=== PATIENT | male | born 1995 | race Caucasian/White ===

== ENCOUNTER 2017-11-21 07:11 | Observation (INO) | payer MEDICAID, OTHER ==
[2017-11-21] VITALS (26 sets, daily range): BP systolic 137–206; BP diastolic 58–105; PULSE 108–164; RESP 8–22; TEMP 98.2–99.2; O2SAT 95–98
[~2017-11-21] VITALS: Ht 180.3 cm; Wt 112.4 kg
[~2017-11-21 07:11] MED LIST: ACIP20TA19 PO; ALBU0.086 INH; CETI10CH PO; GABA100C4 PO; IPRA0.02 INH; MOME1AER2 INH; MONT5CHW2 CHEW; PRED20 PO; SERT-132 PO
[2017-11-21] MEDS ORDERED: ALPRAZolam 0.5 MG TAB PO ONE (07:15)
[2017-11-21] MEDS ORDERED: methylPREDNISolone SOD SUCC 125 MG/2 ML VIAL IV PUSH ONE (07:15)
[2017-11-21] MEDS ORDERED: SODIUM CHLORIDE 0.9% FLUSH 10 ML FLUSH IVF PRN ×2 (07:15→08:45)
--- NOTE | 2017-11-21 07:16 | PD ---
HPI Chief Complaint: Respiratory Symptoms Time Seen by Provider: 07:13 Travel History International Travel<30 days: No Contact w/Intl Traveler<30days: No Traveled to known affect area: No History of Present Illness HPI 22-year-old male came to the emergency room with history of shortness of breath. Patient has been trying to take care of his asthma for past 2 months. Additional history has been given by his mother as well as in the room. She said that patient has been smoking marijuana pipe. He does have history of asthma but was controlled up until 2 months ago. He started getting wheezing, cough and shortness of breath and was started on Singulair, albuterol inhalers and was given a course of Zithromax. However his symptoms did not improve and he was also given a course of prednisone recently by his primary care. Today he was feeling exceptionally bad. He did take 2 puffs of his inhaler but when that did not bring much relief he decided come to the emergency room. Patient has been admitted to the critical care unit for his asthma when he was 9 years old. His last hospitalization was around 14 years of age. Patient does not smoke cigarettes and denies doing any drugs. When he came in his heart rate was in 160s. Blood pressure was very high and upon asking patient says that his primary care has told him that he would need to keep a diary of his blood pressure recording for 2 weeks and she would evaluate that decided to put him on antihypertensives. Today upon arrival his blood pressure was 205/105. Patient says he has been having some chest discomfort lately as well. [facility] Past Medical History Narrative Medical List of his past medical, surgical, social and family history is reviewed from the nursing note. Asthma: Yes Autoimmune Disease: No Anxiety: Yes Depression: No Cardiovascular Problems: No Diminished Hearing: No GERD: Yes Genitourinary: No Musculoskeletal: No Neurologic: No Psychiatric: No Respiratory: Yes Immunizations Current: Yes Past Surgical History Tonsillectomy: Yes Social History Alcohol Use: No Tobacco Use: No Substance Use: Yes (marijuana) Allergies-Medications (Allergen,Severity, Reaction): Coded Allergies: lactose (Unverified Allergy, Severe, 11/21/17) penicillin G (Unverified Allergy, Severe, SOB, HIVES, 11/21/17) Comments List of his allergies reviewed from the nursing note. Reported Meds & Prescriptions Reported Meds & Active Scripts Active Reported Singulair (Montelukast Sodium) 10 Mg Tab 10 Mg PO HS Proair Hfa 8.5 GM Inh (Albuterol Sulfate) 90 Mcg/Act Aer 2 Puff INH Q4-6H PRN 108 mcg/actuation Narrative Medication List of his home medications reviewed from the nursing note. Review of Systems Except as stated in HPI: all other systems reviewed are Neg Cardiovascular: Positive: Tachycardia Respiratory: Positive: Cough, Shortness of Breath, Wheezing Physical Exam Narrative GENERAL: Awake, alert, moderate distress SKIN: Focused skin assessment warm/dry. HEAD: Atraumatic. Normocephalic. EYES: Pupils equal and round. No scleral icterus. No injection or drainage. ENT: No nasal bleeding or discharge. Mucous membranes pink and moist. NECK: Trachea midline. No JVD. CARDIOVASCULAR: Regular rate and rhythm. No murmur appreciated. RESPIRATORY: Decreased air entry with end expiratory wheeze bilaterally. Subcostal muscles retractions were noticed. GASTROINTESTINAL: Abdomen soft, non-tender, nondistended. Hepatic and splenic margins not palpable. MUSCULOSKELETAL: No obvious deformities. No clubbing. No cyanosis. No edema. NEUROLOGICAL: Awake and alert. No obvious cranial nerve deficits. Motor grossly within normal limits. Normal speech. PSYCHIATRIC: Appropriate mood and affect; insight and judgment normal. Data Data Last Documented VS Orders Orders Iv Access Insert/Monitor (11/21/17 07:13) Electrocardiogram (11/21/17 07:13) Ecg Monitoring (11/21/17 07:13) Oximetry (11/21/17 07:13) Oxygen Administration (11/21/17 07:13) Chest, Single Ap (11/21/17 07:13) Sodium Chloride 0.9% Flush (Ns Flush) (11/21/17 07:15) Methylprednisolone So Succ Inj (Solumedr (11/21/17 07:15) Albuterol-Ipratropium Neb (Duoneb Neb) (11/21/17 07:15) Alprazolam (Xanax) (11/21/17 07:15) Metoprolol Tartrate Inj (Lopressor Inj) (11/21/17 08:45) Basic Metabolic Panel (Bmp) (11/21/17 08:40) Complete Blood Count With Diff (11/21/17 08:40) Albuterol Neb (Albuterol Neb) (11/21/17 08:45) Sodium Chloride 0.9% Flush (Ns Flush) (11/21/17 08:45) Arterial Blood Gas (Abg) (11/21/17 ) Influenzae A/B Antigen (11/21/17 10:13) Admit Order (Ed Use Only) (11/21/17 10:16) Place In Observation (11/21/17 ) Vital Signs (Adult) Q4H (11/21/17 10:14) Activity Oob With Assistance (11/21/17 10:14) Diet Heart Healthy (11/21/17 Lunch) Sodium Chlor 0.9% 1000 Ml Inj (Ns 1000 M (11/21/17 11:00) Sodium Chloride 0.9% Flush (Ns Flush) (11/21/17 10:15) Sodium Chloride 0.9% Flush (Ns Flush) (11/21/17 21:00) Acetaminophen (Tylenol) (11/21/17 10:15) Ondansetron Inj (Zofran Inj) (11/21/17 10:15) Basic Metabolic Panel (Bmp) (11/22/17 06:00) Complete Blood Count With Diff (11/22/17 06:00) Resp Oxygen Antonio C Titrat 1-4 L (11/21/17 ) Pt Request For Service (11/21/17 10:14) Case Management Consult (11/21/17 10:14) Enoxaparin Inj (Lovenox Inj) (11/21/17 11:00) Scd Bilateral/Knee High BRIANNA.BID (11/21/17 10:14) Nael Bilateral/Knee High BRIANNA.QSHIFT (11/21/17 10:14) Naloxone Inj (Narcan Inj) (11/21/17 10:15) Docusate Sodium-Senna (Ivon-Colace) (11/21/17 21:00) Magnesium Hydroxide Liq (Milk Of Magnesi (11/21/17 10:15) Sennosides (Senokot) (11/21/17 10:15) Bisacodyl Supp (Dulcolax Supp) (11/21/17 10:15) Albuterol-Ipratropium Neb (Duoneb Neb) (11/21/17 10:15) Albuterol-Ipratropium Neb (Duoneb Neb) (11/21/17 12:00) Labs Laboratory Tests Test 11/21/17 07:21 11/21/17 09:26 White Blood Count 15.6 TH/MM3 Red Blood Count 6.39 MIL/MM3 Hemoglobin 13.6 GM/DL Hematocrit 43.3 % Mean Corpuscular Volume 67.8 FL Mean Corpuscular Hemoglobin 21.3 PG Mean Corpuscular Hemoglobin Concent 31.5 % Red Cell Distribution Width 20.1 % Platelet Count 308 TH/MM3 Mean Platelet Volume 8.5 FL Neutrophils (%) (Auto) 88.7 % Lymphocytes (%) (Auto) 4.5 % Monocytes (%) (Auto) 5.6 % Eosinophils (%) (Auto) 0.9 % Basophils (%) (Auto) 0.3 % Neutrophils # (Auto) 13.9 TH/MM3 Lymphocytes # (Auto) 0.7 TH/MM3 Monocytes # (Auto) 0.9 TH/MM3 Eosinophils # (Auto) 0.1 TH/MM3 Basophils # (Auto) 0.0 TH/MM3 CBC Comment AUTO DIFF Differential Comment AUTO DIFF CONFIRMED Blood Urea Nitrogen 13 MG/DL Creatinine 0.93 MG/DL Random Glucose 113 MG/DL Calcium Level 8.9 MG/DL Sodium Level 137 MEQ/L Potassium Level 3.6 MEQ/L Chloride Level 103 MEQ/L Carbon Dioxide Level 26.9 MEQ/L Anion Gap 7 MEQ/L Estimat Glomerular Filtration Rate 104 ML/MIN Blood Gas Puncture Site RT RADIAL Blood Gas Patient Temperature 37.0 Blood Gas HCO3 23 mmol/L Blood Gas Base Excess -0.8 mmol/L Blood Gas Oxygen Saturation 93 % Arterial Blood pH 7.44 Arterial Blood Partial Pressure CO2 34 mmHg Arterial Blood Partial Pressure O2 68 mmHg Arterial Blood Oxygen Content 17.8 Vol % Arterial Blood Carboxyhemoglobin 1.2 % Arterial Blood Methemoglobin 0.8 % Blood Gas Hemoglobin 13.6 G/DL Oxygen Delivery Device RA Blood Gas Inspired Oxygen 21 % [facility] Medical Decision Making Medical Screen Exam Complete: Yes Emergency Medical Condition: Yes Medical Record Reviewed: Yes Interpretation(s) Twelve-lead EKG was reviewed by me. Normal sinus rhythm, normal axis, tachycardia, nonspecific ST-T wave changes. Heart rate of 151 bpm. Differential Diagnosis Acute asthma exacerbation, pneumonia, status asthmaticus Narrative Course 9:43 AM patient was given initially 3 duo nebs upon arrival. His air entry improved slightly but patient continued to remain tachycardic. His oxygen saturation dropped to 90% on room air. He was started on oxygen via nasal cannula. Upon reassessment chest tightness was appreciated again on auscultation. 3 more albuterol nebulizers were given again. Patient at this point appears to be slightly drowsy but wakes up and answers questions. He did say that his lungs feel better although once again upon auscultation he continued to have wheezes. I ordered a blood gas at this point which has been done and looks unremarkable. Chest x-rays negative for any pneumonia or fluid. Patient was also given IV Solu-Medrol. At this point I decided to admit him at least for observation since in my opinion patient would require a few more bronchodilator treatment and reassessments before he can safely be discharged home. I discussed this at length with the patient and his mother and they agree. Blood test results show leukocytosis which in my opinion could be from recent steroid use. Awaiting for the hospitalist to call back. Patient was also given IV Lopressor for his persistent tachycardia which has brought the heart rate down to the 120s. His blood pressure has come down a little bit. Critical Care Narrative Aggregate critical care time was 45 minutes. Time to perform other separately billable procedures was not included in the critical care time. My time did not include minutes spent treating any other patients simultaneously or on activities that did not directly contribute to the patient's treatment. The services I provided to this patient were to treat and/or prevent clinically significant deterioration that could result in: Respiratory distress, Status asthmaticus, multiple bronchodilator nebulizer treatment, persistent tachycardia I provided critical care services requiring my management, as noted below: Chart data review, documentation time, medication orders and management, vital sign assessments/reviewing monitor data, ordering and reviewing lab tests, ordering and interpreting/reviewing x-rays and diagnostic studies, care of the patient and discussion of the patient with the admitting physicians. Procedures EKG Prior to Arrival: No Diagnosis Primary Impression: Status asthmaticus Qualified Codes: J45.52 - Severe persistent asthma with status asthmaticus Additional Impressions: Tachycardia Hypertension Qualified Codes: I10 - Essential (primary) hypertension Respiratory distress Admitting Information Admitting Physician Requests: Observation Scripts Prednisone (Prednisone) 20 Mg Tab 20 MG PO BID for Inflammation, #20 TAB 0 Refills Take 20 mg twice day for 3 days then 20 mg daily for 3 days 10 mg daily for 3 days Prov: Annemarie Liu MD 11/23/17 Diltiazem CD 24 HR (Cardizem CD 24 HR) 120 Mg Caper 120 MG PO DAILY for tachycardia for 30 Days, #30 CAP 0 Refills Prov: Eri Guthrie 11/23/17 Ferrous Sulfate (Ferosul) 325 Mg (65 Mg Iron) Tablet 325 MG PO BID for supplementation for 30 Days, #60 TAB Prov: Eri Guthrie 11/23/17 Chely Girard MD Nov 21, 2017 07:16
[2017-11-21] MEDS: RESP: ALBUTEROL 2.5 MG/IPRATROPIUM 0.5 MG NEB (SCH) INH (07:24)
[2017-11-21] MEDS ORDERED: PRED20 PO (07:31)
[2017-11-21] MEDS ORDERED: ALBUAER3 INH (07:31)
[2017-11-21] MEDS ORDERED: MONT10TA2 PO (07:31)
--- NOTE | 2017-11-21 07:45 | RADRPT ---
EXAM DATE/TIME: 11/21/2017 07:21 [place] COMPARISON: No previous studies available for comparison. INDICATIONS : Short of breath, chest pain, cough MEDICAL HISTORY : Hypertension. Asthma SURGICAL HISTORY : None. ENCOUNTER: Initial ACUITY: 2 days PAIN SCORE: 5/10 LOCATION: Bilateral chest FINDINGS: A single view of the chest demonstrates the lungs to be symmetrically aerated without evidence of mas s, infiltrate or effusion. The cardiomediastinal contours are unremarkable. Osseous structures are intact. CONCLUSION: No acute disease. Damon Kitchen MD on November 21, 2017 at 7:42 Board Certified Radiologist. This report was verified electronically.
[2017-11-21] MEDS ORDERED: METOPROLOL TARTRATE 5 MG/5 ML VIAL IV PUSH ONE (08:45)
[2017-11-21] MEDS: RESP: ALBUTEROL 2.5 MG/3 ML NEB (SCH) INH ×2 (08:47→08:48)
[2017-11-21 08:51] LABS: AUTOMATED NEUTROPHIL # 13.9 TH/MM3 (1.8-7.7); BASOPHIL % 0.3 % (0.0-2.0); EOSINOPHIL # 0.1 TH/MM3 (0-0.4); EOSINOPHIL % 0.9 % (0.0-4.0); HEMATOCRIT 43.3 % (39.0-51.0); HEMOGLOBIN 13.6 GM/DL (13.0-17.0); LYMPH % 4.5 % (9.0-44.0); LYMPHOCYTE # 0.7 TH/MM3 (1.0-4.8); MEAN CELL VOLUME 67.8 FL (80.0-100.0); MEAN CORPUSCULAR HEMOGLOBIN 21.3 PG (27.0-34.0); MEAN CORPUSCULAR HGB CONC 31.5 % (32.0-36.0); MEAN PLATELET VOLUME 8.5 FL (7.0-11.0); MONO % 5.6 % (0.0-8.0); MONOCYTE # 0.9 TH/MM3 (0-0.9); NEUT % 88.7 % (16.0-70.0); PLATELET COUNT 308 TH/MM3 (150-450); RED BLOOD COUNT 6.39 MIL/MM3 (4.50-5.90); RED CELL DISTRIBUTION WIDTH 20.1 % (11.6-17.2); WHITE BLOOD COUNT 15.6 TH/MM3 (4.0-11.0)
[2017-11-21 09:01] LABS: CALCIUM 8.9 MG/DL (8.5-10.1)
[2017-11-21 09:02] LABS: BICARBONATE 26.9 MEQ/L (21.0-32.0)
[2017-11-21 09:06] LABS: CREATININE 0.93 MG/DL (0.60-1.30)
[2017-11-21] MEDS ORDERED: SODIUM CHLORIDE 0.9% FLUSH 10 ML FLUSH IV FLUSH PRN (10:15)
[2017-11-21] MEDS ORDERED: SENNOSIDES 8.6 MG TAB PO PRN (10:15)
[2017-11-21] MEDS ORDERED: LACTULOSE SYRUP 20 GM/30 ML CUP PO PRN (10:15)
[2017-11-21] MEDS ORDERED: BISACODYL 10 MG SUPP RECTAL PRN (10:15)
[2017-11-21] MEDS ORDERED: ONDANSETRON HCL 4 MG/2 ML VIAL IVP PRN (10:15)
[2017-11-21] MEDS ORDERED: NALOXONE HCL 0.4 MG/ML AMP IV PUSH PRN (10:15)
[2017-11-21] MEDS ORDERED: MAGNESIUM HYDROXIDE SUSP 30 ML CUP PO PRN (10:15)
[2017-11-21] MEDS ORDERED: ACETAMINOPHEN 325 MG TAB PO PRN (10:15)
[2017-11-21] MEDS ORDERED: DILTIAZEM HCL 30 MG TAB PO ONE ×2 (10:30→13:30)
[2017-11-21] MEDS: ENOXAPARIN SODIUM 40 MG/0.4 ML SYRINGE SQ SCH (11:07)
[2017-11-21] MEDS: SODIUM CHLOR 0.9% 1000 ML INJ 1,000 ML IV SCH ×2 (11:08→21:15)
[2017-11-21] MEDS: RESP: ALBUTEROL 2.5 MG/IPRATROPIUM 0.5 MG NEB (SCH) NEB ×3 (12:44→19:11)
[2017-11-21] MEDS: methylPREDNISolone SOD SUCC 40 MG/1 ML VIAL IV PUSH SCH ×3 (12:55→23:27)
--- NOTE | 2017-11-21 14:29 | HHI.HP ---
[facility] Sara Denise [facility] Admission Diagnosis Status asthmaticus, persistent tachycardia, hypertension Diagnoses: (1) Status asthmaticus Diagnosis: Principal Chief Complaint: Worsening shortness of breath Travel History International Travel<30 Days: No Contact w/Intl Traveler <30 Da: No Traveled to Known Affected Are: No Sepsis Criteria SIRS Criteria (2 or more): Heart rate over 90, WBC > 29159, < 4000 or > 10% bands History of Present Illness Written by Eri Guthrie, acting as scribe for Dr. Hadley on 11/21/17 at 14:25. Mr. Griffiths is a pleasant 22-year-old male patient with a known medical history of asthma who presented to the ED with worsening shortness of breath. He states that his asthma has been intermittently causing him dyspnea over the past 2 months with associated wheezing and cough. He states that he has been using his inhaler and home nebulizer at home with little reprieve of dyspnea with increased use. Patient has recently seen him PCP who had prescribed him a course of antibiotics and steroid taper which reportedly did not help his symptoms. Patient presented to the ED with severe dyspnea, severe hypertension and tachycardia. At the time of assessment patient is lying comfortably in bed, on supplemental O2 with oxygen saturations 98%. Cough is improved. HR although is still elevated in the 140's. Does complain of midsternal chest pain associated with breathing. Patient does state that he usually has a couple exacerbations of asthma every winter, but last hospitalization was around the ago of 14 years old. Does admit to smoking marijuana multiple times per day. Denies any tobacco use. Review of Systems Constitutional: DENIES: Fever Eyes: DENIES: Blurred vision, Diplopia Respiratory: COMPLAINS OF: Wheezing, Shortness of breath, DENIES: Cough, Sputum production Cardiovascular: DENIES: Chest pain Gastrointestinal: DENIES: Abdominal pain, Constipation, Diarrhea, Nausea, Vomiting Psychiatric: COMPLAINS OF: Anxiety Except as stated in HPI: all other systems reviewed are Neg Past Family Social History Past Medical History Asthma Hypertension Anxiety GERD Past Surgical History Tonsillectomy Reported Medications Active Reported Prednisone 20 Mg Tab 20 Mg PO DIRECTED 40 MG twice a day x 3 days, then 20 MG daily x 3 days, then 10 MG daily x 3 days Singulair (Montelukast Sodium) 10 Mg Tab 10 Mg PO HS Proair Hfa 8.5 GM Inh (Albuterol Sulfate) 90 Mcg/Act Aer 2 Puff INH Q4-6H PRN 108 mcg/actuation Allergies: Coded Allergies: lactose (Unverified Allergy, Severe, 11/21/17) penicillin G (Unverified Allergy, Severe, SOB, HIVES, 11/21/17) Active Ordered Medications Current Medications Medications (Trade) Dose Ordered Sig/Stephanie Route Start Time Stop Time Status Last Admin Sodium Chloride 1,000 ml @ 100 mls/hr Q10H IV 11/21/17 11:00 11/21/17 11:08 (NS Flush) 2 ml UNSCH PRN IV FLUSH 11/21/17 10:15 (NS Flush) 2 ml BID IV FLUSH 11/21/17 21:00 (Tylenol) 650 mg Q4H PRN PO 11/21/17 10:15 (Zofran Inj) 4 mg Q6H PRN IVP 11/21/17 10:15 (Lovenox Inj) 40 mg Q24H SQ 11/21/17 11:00 11/21/17 11:07 (Narcan Inj) 0.4 mg UNSCH PRN IV PUSH 11/21/17 10:15 (Ivon-Colace) 1 tab BID PO 11/21/17 21:00 (Milk Of Magnesia Liq) 30 ml Q12H PRN PO 11/21/17 10:15 (Senokot) 17.2 mg Q12H PRN PO 11/21/17 10:15 (Dulcolax Supp) 10 mg DAILY PRN RECTAL 11/21/17 10:15 (Duoneb Neb) 1 ampule Q2HR NEB PRN NEB 11/21/17 10:15 (Duoneb Neb) 1 ampule Q4HR WHILE AWAKE NEB NEB 11/21/17 12:00 11/21/17 12:44 (SoluMEDROL INJ) 40 mg Q6HR IV PUSH 11/21/17 12:00 11/21/17 12:55 (Cardizem) 30 mg QID PO 11/21/17 18:00 Family History Does admit to a familial history of asthma and hypertension. Social History Denies any current tobacco use. Does admit to smoking marijuana a couple times per day x 1 year intermittently. Denies any alcohol use. Physical Exam Vital Signs Vital Signs Date Time Temp Pulse Resp B/P (MAP) Pulse Ox O2 Delivery O2 Flow Rate FiO2 11/21/17 13:00 140 139/78 (98) 98 11/21/17 12:23 130 157/70 (99) 97 11/21/17 12:00 98.2 98 11/21/17 11:48 11/21/17 11:16 130 20 183/83 (116) 98 Nasal Cannula 2.00 11/21/17 09:57 149 20 175/82 (113) 96 Nasal Cannula 11/21/17 09:37 156 20 163/73 (103) 95 Nasal Cannula 11/21/17 09:17 158 20 152/86 (108) 97 Nasal Cannula 11/21/17 08:57 136 20 154/78 (103) 97 Nasal Cannula 2.00 11/21/17 08:52 128 20 98 Nasal Cannula 2.00 11/21/17 08:39 90 Nasal Cannula 2.00 11/21/17 08:37 140 20 169/82 (111) 98 Room Air 11/21/17 08:07 154 20 184/86 (118) 96 Room Air 11/21/17 07:57 164 20 174/89 (117) 97 Room Air 11/21/17 07:47 160 20 180/69 (106) 95 Room Air 11/21/17 07:35 156 20 164/85 (111) 97 Room Air 11/21/17 07:27 154 20 165/88 (113) 97 Room Air 11/21/17 07:26 163 96 Room Air 11/21/17 07:21 96 Room Air 11/21/17 07:17 156 20 189/91 (123) 96 Room Air 11/21/17 07:15 99.2 160 22 206/105 (138) 96 Physical Exam GENERAL: This is a well-nourished, well-developed patient, in no apparent distress. SKIN: No rashes, ecchymoses or lesions. Warm and dry. HEAD: Atraumatic. Normocephalic. EYES: Pupils equal round and reactive. Extraocular motions intact. No scleral icterus. No injection or drainage. ENT: Nose without bleeding, purulent drainage or septal hematoma. Throat without erythema, tonsillar hypertrophy or exudate. Uvula midline. Airway patent. NECK: Trachea midline. No JVD or lymphadenopathy. Supple, nontender, no meningeal signs. CARDIOVASCULAR: Regular rate and rhythm without murmurs, gallops, or rubs. RESPIRATORY: Inspiratory and expiratory wheezing noted throughout all lung martinez. Breath sounds equal bilaterally. No wheezes, rales, or rhonchi. GASTROINTESTINAL: Abdomen soft, non-tender, nondistended. No guarding. MUSCULOSKELETAL: Extremities without clubbing, cyanosis, or edema. No joint tenderness, effusion, or edema noted. NEUROLOGICAL: Awake and alert. Cranial nerves II through XII intact. Motor and sensory grossly within normal limits. Five out of 5 muscle strength in all muscle groups. Normal speech. Laboratory Laboratory Tests Test 11/21/17 07:21 11/21/17 09:26 White Blood Count 15.6 Red Blood Count 6.39 Hemoglobin 13.6 Hematocrit 43.3 Mean Corpuscular Volume 67.8 Mean Corpuscular Hemoglobin 21.3 Mean Corpuscular Hemoglobin Concent 31.5 Red Cell Distribution Width 20.1 Platelet Count 308 Mean Platelet Volume 8.5 Neutrophils (%) (Auto) 88.7 Lymphocytes (%) (Auto) 4.5 Monocytes (%) (Auto) 5.6 Eosinophils (%) (Auto) 0.9 Basophils (%) (Auto) 0.3 Neutrophils # (Auto) 13.9 Lymphocytes # (Auto) 0.7 Monocytes # (Auto) 0.9 Eosinophils # (Auto) 0.1 Basophils # (Auto) 0.0 CBC Comment AUTO DIFF Differential Comment AUTO DIFF CONFIRMED Blood Urea Nitrogen 13 Creatinine 0.93 Random Glucose 113 Calcium Level 8.9 Sodium Level 137 Potassium Level 3.6 Chloride Level 103 Carbon Dioxide Level 26.9 Anion Gap 7 Estimat Glomerular Filtration Rate 104 Blood Gas Puncture Site RT RADIAL Blood Gas Patient Temperature 37.0 Blood Gas HCO3 23 Blood Gas Base Excess -0.8 Blood Gas Oxygen Saturation 93 Arterial Blood pH 7.44 Arterial Blood Partial Pressure CO2 34 Arterial Blood Partial Pressure O2 68 Arterial Blood Oxygen Content 17.8 Arterial Blood Carboxyhemoglobin 1.2 Arterial Blood Methemoglobin 0.8 Blood Gas Hemoglobin 13.6 Oxygen Delivery Device RA Blood Gas Inspired Oxygen 21 Date/Time Source Procedure Growth Status 11/21/17 10:19 Nasal Washing Influenza Types A,B Antigen (VIVIANA) - Final NEGATIVE FOR FLU A AND B ANTIGEN.... Complete Result Diagram: 11/21/1772011/21/17720 Imaging Last Impressions Chest X-Ray 11/21/17712 Signed Impressions: Service Date/Time: Tuesday, November 21, 2017 07:21 - CONCLUSION: No acute disease. Damon Kitchen MD Septic Shock Reassessment Septic shock perfusion: reassessment completed Caprini VTE Risk Assessment Caprini VTE Risk Assessment: No/Low Risk (score <= 1) Caprini Risk Assessment Model Point Value = 1 Point Value = 2 Point Value = 3 Point Value = 5 Age 41-60 Minor surgery BMI > 25 kg/m2 Swollen legs Varicose veins or History of unexplained or recurrent spontaneous Oral contraceptives or hormone replacement Sepsis (< 1 month) Serious lung disease, including pneumonia (< 1 month) Abnormal pulmonary function Acute myocardial infarction Congestive heart failure (< 1 month) History of inflammatory bowel disease Medical patient at bed rest Age 61-74 Arthroscopic surgery Major open surgery (> 45 min) Laparoscopic surgery (> 45 min) Malignancy Confined to bed (> 72 hours) Immobilizing plaster cast Central venous access Age >= 75 History of VTE Family history of VTE Factor V Leiden Prothrombin [id number] Lupus anticoagulant Anticardiolipin antibodies Elevated serum homocysteine Heparin-induced thrombocytopenia Other congenital or acquired thrombophilia Stroke (< 1 month) Elective arthroplasty Hip, pelvis, or leg fracture Acute spinal cord injury (< 1 month) Prophylaxis Regimen Total Risk Factor Score Risk Level Prophylaxis Regimen 0-1 Low Early ambulation 2 Moderate Order ONE of the following: *Sequential Compression Device (SCD) *Heparin 5000 units SQ BID 3-4 Higher Order ONE of the following medications: *Heparin 5000 units SQ TID *Enoxaparin/Lovenox 40 mg SQ daily (WT < 150 kg, CrCl > 30 mL/min) *Enoxaparin/Lovenox 30 mg SQ daily (WT < 150 kg, CrCl > 10-29 mL/min) *Enoxaparin/Lovenox 30 mg SQ BID (WT < 150 kg, CrCl > 30 mL/min) AND/OR *Sequential Compression Device (SCD) 5 or more Highest Order ONE of the following medications: *Heparin 5000 units SQ TID (Preferred with Epidurals) *Enoxaparin/Lovenox 40 mg SQ daily (WT < 150 kg, CrCl > 30 mL/min) *Enoxaparin/Lovenox 30 mg SQ daily (WT < 150 kg, CrCl > 10-29 mL/min) *Enoxaparin/Lovenox 30 mg SQ BID (WT < 150 kg, CrCl > 30 mL/min) AND *Sequential Compression Device (SCD) Assessment and Plan Problem List: (1) Status asthmaticus ICD Code: J45.902 - Unspecified asthma with status asthmaticus Status: Acute (2) Hypertension ICD Code: I10 - Essential (primary) hypertension Status: Acute Assessment and Plan Mr. Griffiths is a pleasant 22-year-old male patient with a known medical history of asthma who presented to the ED with worsening shortness of breath. Status asthmaticus with associated tachycardia and hypertension Blood pressure on presentation with systolic in the 200's. Is now more controlled. Continue supplemental O2 as needed. Monitor oxygen saturations. Continue cardiac telemetry, monitor for any arrhythmias. Patient is tachycardic. Has been given Cardizem PO scheduled and IV x 1. Continue to monitor. Duonebs available scheduled and PRN wheezing/shortness of breath. Encourage use of Incentive spirometer. Continue IV steroids 40 mg IV q6hr. Ensure hydration, NS @ 100 ml/hr. Encourage PO intake as tolerated. CXR reviewed showing no acute disease. Influenza negative. Leukocytosis with mild bandemia suspect secondary to steroid use Patient states he was on a steroid taper prescribed by his PCP which can cause elevation of WBCs. Afebrile. No signs of infection. Will continue to monitor. CBC in am. Follow. DVT Prophylaxis: SCDs. Lovenox. This note was transcribed by YASEMIN Tamayo . I, Dr. Krista Hadley personally performed the history, physical exam, and medical decision making; and confirmed the accuracy of the information in the transcribed note. Authenticated by Dr. Krista Hadley on 11/21/17 at 14:25. Problem Qualifiers (1) Status asthmaticus: Qualified Codes: J45.52 - Severe persistent asthma with status asthmaticus (2) Hypertension: Qualified Codes: I10 - Essential (primary) hypertension Eri Guthrie Nov 21, 2017 14:29 Krista Hadley MD Nov 21, 2017 17:49
[2017-11-21] MEDS ORDERED: DILTIAZEM HCL 25 MG/5 ML VIAL IV ONE (15:45)
[2017-11-21] MEDS: DILTIAZEM HCL 30 MG TAB PO SCH ×2 (17:36→21:15)
[2017-11-21] MEDS ORDERED: cloNIDine HCL 0.1 MG TAB PO ONE (18:45)
[2017-11-21] MEDS ORDERED: ALPRAZolam 0.25 MG TAB PO PRN (18:45)
[2017-11-21] MEDS: SODIUM CHLORIDE 0.9% FLUSH 10 ML FLUSH IV FLUSH SCH (21:00)
[2017-11-21] MEDS: DOCUSATE SODIUM 50 MG/SENNA 8.6 MG TAB PO SCH (21:15)
[2017-11-22] VITALS (10 sets, daily range): BP systolic 128–176; BP diastolic 52–90; PULSE 95–118; RESP 9–26; TEMP 97–98.4; O2SAT 94–99
[2017-11-22] MEDS: methylPREDNISolone SOD SUCC 40 MG/1 ML VIAL IV PUSH SCH ×4 (05:46→23:22)
[2017-11-22] MEDS: RESP: ALBUTEROL 2.5 MG/IPRATROPIUM 0.5 MG NEB (PRN) NEB ×2 (05:55→23:29)
[2017-11-22 06:43] LABS: AUTOMATED NEUTROPHIL # 17.1 TH/MM3 (1.8-7.7); BASOPHIL % 0.1 % (0.0-2.0); EOSINOPHIL % 0.1 % (0.0-4.0); HEMATOCRIT 42.8 % (39.0-51.0); HEMOGLOBIN 13.6 GM/DL (13.0-17.0); LYMPH % 7.8 % (9.0-44.0); LYMPHOCYTE # 1.5 TH/MM3 (1.0-4.8); MEAN CELL VOLUME 67.1 FL (80.0-100.0); MEAN CORPUSCULAR HEMOGLOBIN 21.3 PG (27.0-34.0); MEAN CORPUSCULAR HGB CONC 31.7 % (32.0-36.0); MEAN PLATELET VOLUME 7.9 FL (7.0-11.0); MONO % 2.4 % (0.0-8.0); MONOCYTE # 0.5 TH/MM3 (0-0.9); NEUT % 89.6 % (16.0-70.0); PLATELET COUNT 306 TH/MM3 (150-450); RED BLOOD COUNT 6.38 MIL/MM3 (4.50-5.90); RED CELL DISTRIBUTION WIDTH 20.6 % (11.6-17.2); WHITE BLOOD COUNT 19.1 TH/MM3 (4.0-11.0)
[2017-11-22 06:52] LABS: CHLORIDE 104 MEQ/L (98-107); SODIUM (NA) 139 MEQ/L (136-145)
[2017-11-22 06:54] LABS: CALCIUM 9.4 MG/DL (8.5-10.1)
[2017-11-22 06:55] LABS: BICARBONATE 24.3 MEQ/L (21.0-32.0); BLOOD UREA NITROGEN 13 MG/DL (7-18); GLUCOSE,RANDOM 130 MG/DL (74-106)
[2017-11-22 06:58] LABS: CREATININE 0.64 MG/DL (0.60-1.30); GLOMERULAR FILTRATION RATE 159 ML/MIN (>89)
[2017-11-22] MEDS: SODIUM CHLOR 0.9% 1000 ML INJ 1,000 ML IV SCH ×2 (07:00→17:30)
[2017-11-22] MEDS: RESP: ALBUTEROL 2.5 MG/IPRATROPIUM 0.5 MG NEB (SCH) NEB ×4 (07:40→19:40)
[2017-11-22 08:53] LABS: % SATURATION IRON PROFILE 3.8 % (20-50); IRON (FE) 18 MCG/DL (65-175); TOTAL IRON BINDING CAPACITY 469 MCG/DL (250-450)
[2017-11-22 08:56] LABS: FERRITIN 20 NG/ML (26-388)
[2017-11-22] MEDS: SODIUM CHLORIDE 0.9% FLUSH 10 ML FLUSH IV FLUSH SCH ×2 (09:00→20:36)
[2017-11-22] MEDS: DOCUSATE SODIUM 50 MG/SENNA 8.6 MG TAB PO SCH ×2 (09:01→20:35)
[2017-11-22] MEDS: DILTIAZEM HCL 30 MG TAB PO SCH ×4 (09:01→20:36)
--- NOTE | 2017-11-22 09:52 | HHI.PR ---
Subjective Remarks Still with wheezing and sob. Still tachycardic but improving. Not coughing much. No fever or chills. No n/v/d/c. Objective Vitals Vital Signs Date Time Temp Pulse Resp B/P (MAP) Pulse Ox O2 Delivery O2 Flow Rate FiO2 11/22/17 08:00 98.4 106 15 135/67 (89) 95 11/22/17 07:42 96 Nasal Cannula 2.00 11/22/17 04:00 97.6 109 19 128/52 (77) 94 11/22/17 00:00 97.0 118 26 130/90 (103) 96 11/21/17 21:01 108 8 147/75 (99) 98 11/21/17 20:01 98.7 118 11 137/61 (86) 97 11/21/17 19:11 96 Nasal Cannula 2.00 11/21/17 17:00 126 12 149/66 (93) 97 11/21/17 16:24 130 15 150/58 (88) 97 11/21/17 16:00 128 11 171/66 (101) 98 11/21/17 15:00 126 15 167/74 (105) 98 11/21/17 14:00 132 10 151/75 (100) 98 11/21/17 13:00 140 139/78 (98) 98 11/21/17 12:23 130 157/70 (99) 97 11/21/17 12:00 98.2 98 11/21/17 11:48 11/21/17 11:16 130 20 183/83 (116) 98 Nasal Cannula 2.00 11/21/17 09:57 149 20 175/82 (113) 96 Nasal Cannula I/O 11/21/17 11/21/17 11/21/17 11/22/17 11/22/17 11/22/17 07:00 15:00 23:00 07:00 15:00 23:00 Intake Total 85 ml 500 ml 1388 ml Output Total 800 ml 900 ml Balance 85 ml -300 ml 488 ml Intake Oral 500 ml 240 ml IV Total 85 ml 1148 ml Output Urine Total 800 ml 900 ml # Bowel Movements 0 Result Diagram: 11/22/1762111/22/17621 Imaging Last Impressions Chest X-Ray 11/21/17712 Signed Impressions: Service Date/Time: Tuesday, November 21, 2017 07:21 - CONCLUSION: No acute disease. Damon Kitchen MD Objective Remarks GENERAL: This is a well-nourished, well-developed patient, in no apparent distress. CARDIOVASCULAR: Regular rate and rhythm without murmurs, gallops, or rubs. RESPIRATORY: Inspiratory and expiratory wheezing noted throughout all lung martinez. Breath sounds equal bilaterally. No wheezes, rales, or rhonchi. GASTROINTESTINAL: Abdomen soft, non-tender, nondistended. No guarding. MUSCULOSKELETAL: Extremities without clubbing, cyanosis, or edema. No joint tenderness, effusion, or edema noted. NEUROLOGICAL: Awake and alert. Cranial nerves II through XII intact. Motor and sensory grossly within normal limits. Five out of 5 muscle strength in all muscle groups. Normal speech. A/P Problem List: (1) Status asthmaticus ICD Code: J45.902 - Unspecified asthma with status asthmaticus Status: Acute (2) Hypertension ICD Code: I10 - Essential (primary) hypertension Status: Acute Assessment and Plan Mr. Griffiths is a pleasant 22-year-old male patient with a known medical history of asthma who presented to the ED with worsening shortness of breath. Status asthmaticus with associated tachycardia and hypertension Blood pressure on presentation with systolic in the 200's. Is now more controlled. Continue supplemental O2 as needed. Monitor oxygen saturations. Continue cardiac telemetry, monitor for any arrhythmias. Patient is tachycardic. Has been given Cardizem PO scheduled and IV x 1. Continue to monitor. Duonebs available scheduled and PRN wheezing/shortness of breath. Encourage use of Incentive spirometer. Continue IV steroids 40 mg IV q6hr. Ensure hydration, DC NS @ 100 ml/hr. Encourage PO intake as tolerated. CXR reviewed showing no acute disease. Influenza negative. Leukocytosis with mild bandemia suspect secondary to steroid use Patient states he was on a steroid taper prescribed by his PCP which can cause elevation of WBCs. Afebrile. No signs of infection. Will continue to monitor. CBC in am. Follow. Severe Iron deficiency anemia: Start ferrous sulfate PO. Venofer IV. DVT Prophylaxis: SCDs. Lovenox. DC when improves poss 1-2 days Problem Qualifiers (1) Status asthmaticus: Qualified Codes: J45.52 - Severe persistent asthma with status asthmaticus (2) Hypertension: Qualified Codes: I10 - Essential (primary) hypertension Krista Hadley MD Nov 22, 2017 09:52
[2017-11-22] MEDS ORDERED: IRON SUCROSE INJ 100 MG in SODIUM CHLORIDE 0.9% INJ 100 ML IV ONE (10:00)
[2017-11-22] MEDS: ENOXAPARIN SODIUM 40 MG/0.4 ML SYRINGE SQ SCH (11:06)
--- NOTE | 2017-11-22 13:58 | EKG ---
Date Performed: 11/21/2017 Time Performed: 07:14:02 PTAGE: 22 years EKG: Marked sinus tachycardia NONSPECIFIC T-WAVE ABNORMALITY ABNORMAL RHYTHM ECG NO PREVIOUS TRACING DOCTOR: Real Mari Interpretating Date/Time 11/22/2017 13:56:59
[2017-11-22] MEDS: FERROUS SULFATE 325 MG (65 MG ELEMENTAL IRON) TAB PO SCH (20:35)
[2017-11-23] VITALS (15 sets, daily range): BP systolic 124–162; BP diastolic 66–80; PULSE 72–114; RESP 9–21; TEMP 97.8–97.9; O2SAT 91–98
[2017-11-23] MEDS: methylPREDNISolone SOD SUCC 40 MG/1 ML VIAL IV PUSH SCH ×2 (05:23→12:50)
[2017-11-23] MEDS: RESP: ALBUTEROL 2.5 MG/IPRATROPIUM 0.5 MG NEB (SCH) NEB ×3 (07:41→15:01)
[2017-11-23] MEDS: DOCUSATE SODIUM 50 MG/SENNA 8.6 MG TAB PO SCH (08:43)
[2017-11-23] MEDS: SODIUM CHLORIDE 0.9% FLUSH 10 ML FLUSH IV FLUSH SCH (08:43)
[2017-11-23] MEDS: FERROUS SULFATE 325 MG (65 MG ELEMENTAL IRON) TAB PO SCH (08:43)
[2017-11-23] MEDS: DILTIAZEM HCL 30 MG TAB PO SCH ×2 (08:43→12:50)
[2017-11-23] MEDS: ENOXAPARIN SODIUM 40 MG/0.4 ML SYRINGE SQ SCH (12:51)
[2017-11-23] MEDS ORDERED: CARD120C4 PO (16:22)
[2017-11-23] MEDS ORDERED: FERR325T20 PO (16:22)
--- NOTE | 2017-11-23 16:51 | HHI.DCPOC ---
Discharge Care Plan Diagnosis: (1) Asthma exacerbation Goals to Promote Your Health * To prevent worsening of your condition and complications * To maintain your health at the optimal level Directions to Meet Your Goals Take your medications as prescribed Follow your dietary instruction Follow activity as directed Keep your appointments as scheduled Take your immunizations and boosters as scheduled If your symptoms worsen call your PCP, if no PCP go to Urgent Care Center or Emergency Room Smoking is Dangerous to Your Health. Avoid second hand smoke Call the 24-hour hour crisis hotline for domestic abuse at Annemarie Liu MD Nov 23, 2017 16:51
[2017-11-23] MEDS ORDERED: PRED20 PO (16:52)
--- NOTE | 2017-11-23 16:55 | HHI.DS ---
Discharge Summary Admission Date Nov 21, 2017 at 10:17 Discharge Date: Nov 23, 2017 Admitting Diagnosis Status asthmaticus, persistent tachycardia, hypertension (1) Status asthmaticus ICD Code: J45.902 - Unspecified asthma with status asthmaticus Status: Acute (2) Hypertension ICD Code: I10 - Essential (primary) hypertension Status: Acute Procedures none Brief History - From Admission Written by Eri Guthrie, acting as scribe for Dr. Hadley on 11/21/17 at 14:25. Mr. Griffiths is a pleasant 22-year-old male patient with a known medical history of asthma who presented to the ED with worsening shortness of breath. He states that his asthma has been intermittently causing him dyspnea over the past 2 months with associated wheezing and cough. He states that he has been using his inhaler and home nebulizer at home with little reprieve of dyspnea with increased use. Patient has recently seen him PCP who had prescribed him a course of antibiotics and steroid taper which reportedly did not help his symptoms. Patient presented to the ED with severe dyspnea, severe hypertension and tachycardia. At the time of assessment patient is lying comfortably in bed, on supplemental O2 with oxygen saturations 98%. Cough is improved. HR although is still elevated in the 140's. Does complain of midsternal chest pain associated with breathing. Patient does state that he usually has a couple exacerbations of asthma every winter, but last hospitalization was around the ago of 14 years old. Does admit to smoking marijuana multiple times per day. Denies any tobacco use. CBC/BMP: 11/22/17 0622 11/22/17 0622 Significant Findings Laboratory Tests Test 11/21/17 07:21 11/21/17 09:26 11/22/17 06:22 White Blood Count 15.6 TH/MM3 (4.0-11.0) 19.1 TH/MM3 (4.0-11.0) Red Blood Count 6.39 MIL/MM3 (4.50-5.90) 6.38 MIL/MM3 (4.50-5.90) Mean Corpuscular Volume 67.8 FL (80.0-100.0) 67.1 FL (80.0-100.0) Mean Corpuscular Hemoglobin 21.3 PG (27.0-34.0) 21.3 PG (27.0-34.0) Mean Corpuscular Hemoglobin Concent 31.5 % (32.0-36.0) 31.7 % (32.0-36.0) Red Cell Distribution Width 20.1 % (11.6-17.2) 20.6 % (11.6-17.2) Neutrophils (%) (Auto) 88.7 % (16.0-70.0) 89.6 % (16.0-70.0) Lymphocytes (%) (Auto) 4.5 % (9.0-44.0) 7.8 % (9.0-44.0) Neutrophils # (Auto) 13.9 TH/MM3 (1.8-7.7) 17.1 TH/MM3 (1.8-7.7) Lymphocytes # (Auto) 0.7 TH/MM3 (1.0-4.8) Random Glucose 113 MG/DL (74-106) 130 MG/DL (74-106) Arterial Blood pH 7.44 (7.380-7.420) Arterial Blood Partial Pressure CO2 34 mmHg (38-42) Iron Level 18 MCG/DL (65-175) Total Iron Binding Capacity 469 MCG/DL (250-450) Percent Iron Saturation 3.8 % (20-50) Ferritin 20 NG/ML (26-388) Imaging Last Impressions Chest X-Ray 11/21/17 0713 Signed Impressions: Service Date/Time: Tuesday, November 21, 2017 07:21 - CONCLUSION: No acute disease. Damon Kitchen MD PE at Discharge GENERAL: This is a well-nourished, well-developed patient, in no apparent distress. CARDIOVASCULAR: Regular rate and rhythm without murmurs, gallops, or rubs. RESPIRATORY: Inspiratory and expiratory wheezing noted throughout all lung martinez. Breath sounds equal bilaterally. No wheezes, rales, or rhonchi. GASTROINTESTINAL: Abdomen soft, non-tender, nondistended. No guarding. MUSCULOSKELETAL: Extremities without clubbing, cyanosis, or edema. No joint tenderness, effusion, or edema noted. NEUROLOGICAL: Awake and alert. Cranial nerves II through XII intact. Motor and sensory grossly within normal limits. Five out of 5 muscle strength in all muscle groups. Normal speech. Pt update on day of discharge Patient seen and evaluated today, respiratory status is improved Discharge plans discussed with patient not continues to be tachycardic but in no distress Hospital Course This patient is a 22-year-old gentleman was admitted with uncontrolled asthma. He improved with IV steroids and bronchodilators. Patient did well although he remained tachycardic. Pt Condition on Discharge: Good Discharge Disposition: Discharge Home Discharge Time: <= 30 minutes Discharge Instructions DIET: Follow Instructions for: As Tolerated, No Restrictions Activities you can perform: Regular-No Restrictions Follow up Referrals: PCP Follow-up - 11/27/17 New Medications: Diltiazem CD 24 HR (Cardizem CD 24 HR) 120 Mg Caper 120 MG PO DAILY for tachycardia for 30 Days, #30 CAP 0 Refills Prednisone (Prednisone) 20 Mg Tab 20 MG PO BID for Inflammation, #20 TAB 0 Refills Take 20 mg twice day for 3 days then 20 mg daily for 3 days 10 mg daily for 3 days Ferrous Sulfate (Ferosul) 325 Mg (65 Mg Iron) Tablet 325 MG PO BID for supplementation for 30 Days, #60 TAB Continued Medications: Albuterol 8.5 GM Inh (Proair Hfa 8.5 GM Inh) 90 Mcg/Act Aer 2 PUFF INH Q4-6H PRN for SHORTNESS OF BREATH, #1 INHALER 0 Refills 108 mcg/actuation Montelukast (Singulair) 10 Mg Tab 10 MG PO HS, #30 TAB 0 Refills Discontinued Medications: Prednisone (Prednisone) 20 Mg Tab 20 MG PO DIRECTED for Inflammation, #11 TAB 0 Refills 40 MG twice a day x 3 days, then 20 MG daily x 3 days, then 10 MG daily x 3 days Annemarie Liu MD Nov 23, 2017 16:55
== END 2017-11-23 18:00 | disposition home or self-care (01) ==
LOC: PHED 07:11 → PHEDA 10:17 → PHICU 11:45
PROVIDERS: ADMIT Hospitalist; ATTEND Hospitalist
DX: J45.52 Severe persistent asthma with status asthmaticus (principal); F12.90 Cannabis use, unspecified, uncomplicated; R07.2 Precordial pain; F41.9 Anxiety disorder, unspecified; K21.9 Gastro-esophageal reflux disease without esophagitis; R00.0 Tachycardia, unspecified; R06.03 Acute respiratory distress; I10 Essential (primary) hypertension; R94.31 Abnormal electrocardiogram [ECG] [EKG]; Z79.899 Other long term (current) drug therapy; B96.89 Other specified bacterial agents as the cause of diseases classified elsewhere
CPT/HCPCS: 36600; 71010; 80048; 82728; 82805; 83540; 83550; 85025; 87070; 87205; 87804; 93005; 94150; 94640; 94664; 96361; 96365; 96372; 96375; 96376; 97116; 97161; 99291; G0378; G8987; G8988; J1650; J1756; J2920; J2930; J7030; J7613